=== PATIENT | male | born 1935 | race Caucasian/White ===

== ENCOUNTER 2016-10-11 01:09 | Observation (INO) | payer MEDICARE, OTHER ==
[~2016-10-11] VITALS: Ht 180.3 cm; Wt 90.8 kg
[~2016-10-11 01:09] MED LIST: METH500T PO; OXYC1TAB24 PO
[2016-10-11 01:14] VITALS: BP 125/65; PULSE 90; RESP 14; O2SAT 99
--- NOTE | 2016-10-11 01:31 | ED.REPORT ---
HPI-Chest Pain 40 and Over Date of Service Oct 11, 2016 ED Provider: Rajat Everett MD A 80 year old male on Warfarin with a history of NH with cardiac stent placement , atrial fibrillation, and a prior history of smoking is brought to the ED via EMS due to an intermittent "chest disturbance." The discomfort lasts for a moment and has occurred several times this evening. The pt denies shortness of breath or diaphoresis. The pt lives alone at home. Nursing Notes Stated Complaint: CHEST PAIN Chief Complaint: Chest Pain Nursing Notes Reviewed: Yes Allergies: Coded Allergies: No Known Allergies (Unverified , 10/11/16) Scheduled Atorvastatin (Lipitor) 10 Mg Tab 10 MG PO DAILY Cyclosporine (Restasis) 1 Each Droperette 1 EACH AFFECT_EYE BID Diltiazem ER (Diltiazem ER) 180 Mg Cap.er.24h 180 MG PO BID Furosemide (Lasix) 20 Mg Tablet 20 MG PO DAILY Gabapentin (Gabapentin) 300 Mg Capsule 300 MG PO HS Lifitegrast (Xiidra) 5 % Droperette 1 EACH BOTH_EYES BID Methocarbamol (Robaxin) 500 Mg Tablet 1,000 MG PO TID Tamsulosin (Flomax) 0.4 Mg Capsule 0.8 MG PO DAILY Triamterene/HCTZ 37.5-25 mg (Triamterene/HCTZ 37.5-25 mg) 1 Each Capsule 1 CAPSULE PO DAILY Warfarin Sodium (Coumadin) 2.5 Mg Tablet 2.5 MG PO DAILY Scheduled PRN oxyCODONE-Acetaminophen 5-325 mg (oxyCODONE-Acetaminophen 5-325 mg) 1 Each Tablet 1 TAB PO Q4H PRN PRN For Pain General Time Seen by MD: 01:30 Chief Complaint Chest pain Hx Obtained From: Patient, EMS Arrived By: Ambulance Sudden in Onset?: Yes Symptom Duration: Intermittent Recent Healthcare: No recent doctor visit, No recent hospitalization Similar Sx Previous: No Past Medical History Past Medical History NH with cardiac stent placement Kidney stones Food hoarding Low back pain for 1 yr as of 2016 Atrial fibrillation Reports: Atrial fibrillation Past Surgical History Cardiac stent placement Skin cancer removal Lithotripsy Reports: Appendectomy Smoking History Former Smoker Social History Meteorological Engineer reports that patient is a hoarder, and that his house is full of dramatic amounts of food that is extensive states of decay. He is also actively john and dehydrating foods and storing them in large quantities. Alcohol Use: Denies alcohol use Drug Use: Denies drug use Other Social History: Local resident Occupation lives by self in 2 story house Ambulatory Status Independent Review of Systems Constitutional: Denies: Fever Respiratory: Denies: Non-productive cough, Shortness of breath Cardiovascular: Reports: Chest pain ("discomfort") GI: Denies: Abdominal pain, Vomiting Musculoskeletal: Denies: Back pain Skin: Denies Diaphoresis, Denies Rash Complete sys rev & neg: except as marked. Physical Exam Initial Vital Signs Vital Signs (First) Date Time Temp Pulse Resp B/P Pulse Ox O2 Delivery O2 Flow Rate FiO2 10/11/16 01:14 36.5 90 14 125/65 99 Room Air Initial VS: Reviewed General/Constitutional: Awake, Alert Respiratory / Chest: Atraumatic, Breath sounds NL, Breath sounds = bilat, No respiratory distress Cardiovascular: Heart rate NL, Regular rhythm, Heart sounds NL Abdomen: Atraumatic, Soft, Non-tender Neck: Atraumatic, Supple, Full range of motion Back: Atraumatic, Full range of motion Lower Extremity / Pelvis / MS: Atraumatic, Full range of motion Skin: Atraumatic, Color NL, No rash, Warm, Dry Neurologic: Oriented X3, Speech NL, No motor deficits, No sensory deficits Psychiatric: Affect NL, Mood NL Head / Eyes: Atraumatic, Normocephalic, PERRL, EOMI ENT: Atraumatic, Airway patent, Mucous membranes moist Upper Extremity / MS: Atraumatic, Full range of motion Interpretation & Diagnostics Lab Results Interpretation Result Diagram: 10/11/16 0545 10/11/16 0545 Test 10/11/16 01:17 Hold Purple Top Tube Received (Received) Prothrombin Time 58.4sec (8.1-12.5) Prothromb Time International Ratio 5.28ratio Activated Partial Thromboplast Time 44.2sec (22.8-33.0) Hold Blue Top Tube Received (Received) Magnesium Level 1.8mg/dL (1.6-2.6) Pro-B-Type Natriuretic Peptide 367.7pg/mL (0-486) Hold Shawnee Top Tube Received (Received) Hold Lucas Top Tube Received (Received) ECG Interpretation ECG Interpretation: atrial fibrillation with a rate of 101 low voltage, extremity leads Time: 01:13 Interpreted by: ED physician X-Ray Chest Interpretation Chest Xray Interpretation: no acute findings Interpretation / Wet Read by: Wet read ED physician Re-Eval/Medical Decision Med Decision/Clinical Course 80-year-old with known coronary disease presents with an atypical brief fleeting chest pain repetitively over the course seeming. Initial cardiac enzymes and EKG are unrevealing. However, he is not a low risk patient with known disease. He also lives alone and is mildly demented. He is admitted now for completion of rule out protocol and further evaluation to assess stability. Additional issues include elevation of his creatinine now to 1.29, which is changed from the one prior value we have. BUN is also twenty-seven and he appears to be mildly dehydrated. Additional to that is the fact that he is on Coumadin chronically for atrial fibrillation, and is over anticoagulated at this point, without active bleeding. Coumadin will need to be held in dosage modified. Source of Hx: Old records Time of Eval: 03:15 Patient Status: Condition improved Re-Evaluation/Progress Note: Pt rechecked, who is resting comfortably. He is informed of his diagnosis and the need for admission. The pt understands and agrees with the plan. All questions are addressed at this time. Consultation : Referral / Consult Name: Patsy Casper DO Consulted With: Hospitalist Call Returned at: 03:11 [employer] Contact Printer: Agrees with eval, Agrees with plan, Accepts admit Note: Spoke with Dr. Casper, hospitalist, regarding pt's case. Dr. Casper agrees with the evaluation and agrees to admit the pt. Counseled Regarding: Diagnosis, Lab results, Need for admission Discharge & Departure Primary Impression: Chest pain Additional Impressions: Acute kidney injury Overdose of coumadin Disposition: ADMITTED TO HOSPITAL Discharge Condition All VS Reviewed: Yes Condition: Stable Referrals: Carson Ruff (PCP) Karl Attestation Portions of this note were transcribed by Norberto Eagle. I, Dr. Everett personally performed the history, physical exam and medical decision-making; I reviewed and confirmed the accuracy of the information in the transcribed note. Signed by: Karl Fernandes, 10/11/2016 and 0336. copies to: Carson Ruff Christopher W MD Oct 11, 2016 01:31 NORBERTO EAGLE Oct 11, 2016 01:41 Troponin T 0.010ug/L (0.0-0.011) Pro-B-Type Natriuretic Peptide 367.7pg/mL (0-486) Total Protein 6.6g/dL (6.4-8.4) Albumin 3.9g/dL (3.4-5.0) Hold Shawnee Top Tube Received (Received) Hold Lucas Top Tube Received (Received) ECG Interpretation ECG Interpretation: atrial fibrillation with a rate of 101 low voltage, extremity leads Time: 01:13 Interpreted by: ED physician X-Ray Chest Interpretation Chest Xray Interpretation: no acute findings Interpretation / Wet Read by: Wet read ED physician Re-Eval/Medical Decision Source of Hx: Old records Time of Eval: 03:15 Patient Status: Condition improved Re-Evaluation/Progress Note: Pt rechecked, who is resting comfortably. He is informed of his diagnosis and the need for admission. The pt understands and agrees with the plan. All questions are addressed at this time. Consultation : Referral / Consult Name: Patsy Casper DO Consulted With: Hospitalist Call Returned at: 03:11 [employer] Contact Printer: Agrees with eval, Agrees with plan, Accepts admit Note: Spoke with Dr. Casper, hospitalist, regarding pt's case. Dr. Casper agrees with the evaluation and agrees to admit the pt. Counseled Regarding: Diagnosis, Lab results, Need for admission Discharge & Departure Primary Impression: Chest pain Additional Impressions: Acute kidney injury Overdose of coumadin Disposition: ADMITTED TO HOSPITAL Discharge Condition All VS Reviewed: Yes Condition: Stable Referrals: Carson Ruff (PCP) Karl Attestation Portions of this note were transcribed by Norberto Eagle. I, Dr. Everett personally performed the history, physical exam and medical decision-making; I reviewed and confirmed the accuracy of the information in the transcribed note. Signed by: Karl Fernandes, 10/11/2016 and 0336. copies to: Carson Ruff Christopher W MD Oct 11, 2016 01:31 NORBERTO EAGLE Oct 11, 2016 01:41
[2016-10-11] MEDS ORDERED: Pantoprazole 4 mg/mL 10 mL Inj IVPUSH ONE (01:50)
[2016-10-11] MEDS ORDERED: Ketorolac 15 mg/mL Inj IVPUSH ONE (01:50)
[2016-10-11 01:56] LABS: BASOPHILS % (AUTO) 0.4 % (0-3); EOSINOPHILS % (AUTO) 0.8 % (0-5); MONOCYTES % (AUTO) 11.1 % (4-12); Mean Corpuscular Hemoglobin 31.7 pg (27.0-35.0); Mean Corpuscular Volume 92.9 fL (81-100); NEUTROPHILS % (AUTO) 61.8 % (40-74); Platelet Count 282 bil/L (150-400)
[2016-10-11 02:18] LABS: INR 5.28 ratio
[2016-10-11 02:24] LABS: Magnesium 1.8 mg/dL (1.6-2.6)
[2016-10-11 02:25] LABS: TROPONIN T 0.01 ug/L (0.0-0.011)
[2016-10-11] MEDS ORDERED: 0.9% Sodium Chloride 1,000 ML IV ONE (02:55)
[2016-10-11] MEDS ORDERED: 0.9% Sodium Chloride 1,000 ML IV SCH (03:38)
[2016-10-11] MEDS ORDERED: Polyethylene Glycol (PEG) 17 Gm Powder PO PRN (03:40)
[2016-10-11] MEDS: Sodium Chloride LOK Flush 10 mL Syringe IVFLUSH SCH ×2 (03:40→10:43)
[2016-10-11] MEDS ORDERED: Alum-Mag Hydrox-Simeth 30 mL Suspension PO PRN (03:40)
[2016-10-11] MEDS ORDERED: Ondansetron 2 mg/mL 2 mL Inj IVPUSH PRN (03:40)
--- NOTE | 2016-10-11 04:20 | PCM.HPMED ---
Subjective Date of Service Oct 11, 2016 Primary Provider: Admitting Physician: Patsy Casper DO Primary Care Physician: Gopal Galeano DO Attending Physician: aPtsy Casper DO Admit Status: From the Emergency Department Chief Complaint: Chest discomfort History of Present Illness: Patient is a pleasant 80-year-old gentleman who lives by himself, presented to the emergency department after having "discomfort" to his left chest. He has a significant history of myocardial infarction status post stent placement. He refuses to call the sensation of pain, says that with his previous myocardial infarction he did not have any symptoms at all, which prompted him to call [phone]. He is on Coumadin for atrial fibrillation, diltiazem for rate control. He denies any lightheadedness, dizziness, shortness of breath, nausea vomiting diarrhea, weakness, rashes, pain anywhere else on his body, no sensation of heartburn, no changes in vision, no headaches. In the emergency department his vital signs: 36.5C, heart rate 90, respirations 14, 125/65, 99% on room air CBC is completely unremarkable, with normal differential. CMP mildly elevated creatinine at 1.29. BUN 27. BNP is 367, magnesium 1.8. Electrolytes were normal. INR 5.28 Chest x-ray performed in the emergency department showed no acute findings, as read by the emergency room physician. EKG showed atrial fibrillation with a rate of 101, developing left axis deviation, no signs of acute ischemia or infarct. QTC 455 Patient states he does not eat as much as he used to, but does eat at least one meal a day. Tonight he claims he did not have anything to drink with dinner because he went to [employer] and to charge him for water. He does not have any family in the area, nor does he have a coil connector to check in on him. Previous social history states that he is a hoarder and has multiple bottles of food in varying states of decay throughout his home. He states he occasionally misses doses of his Coumadin, but denies taking extra doses to "catch up." Review of outpatient records shows his INR on 09/19/2016 was 2.4. He denies any bruising, black stools, hematemesis, hematochezia. Allergies Coded Allergies: No Known Allergies (Unverified , 10/11/16) Home Medications Warfarin: 2.5 mg every day by mouth Atorvastatin 10 mg everyday by mouth Diltiazem XL 180 mg capsule 1 pill by mouth twice a day Furosemide 20 mg by oral route every day Gabapentin 300 mg by 2 pills by mouth every day at bedtime Triamterene 37.5 mg-hydrochlorothiazide 25 mg 1 capsule everyday by mouth Tamsulosin 0.4 mg 2 capsules every day, half hour following the same meal each day. xiidra 5% eyedrops 1 drop of ophthalmic route 2 times every day and both eyes approximately 12 hours apart. Restasis 0.05% eyedrops, 1 drop 5, crit every 12 hours to affected eyes PMH Myocardial infarction status post stent placement 11/19/2015 Mild dementia Hypertension Hyperlipidemia Cataract Skin cancer DPH Aortic stenosis Atrial fibrillation Surgical History Cardiac stent placement Skin cancer removal Lithotripsy Reports: Appendectomy Family History Mother lived to be 106 years old Father is Brother is alive and well Sisters alive and well Maternal grandmother passed from stomach cancer. Social History Occupation: retired Hx Alcohol Use: Yes (Wine occassionally. ) Hx Substance Use: No Hx Tobacco Use: Yes Smoking Status: Former Smoker Living Arrangement: Alone Exam Vital Signs Vital Sign - Last Date Time Temp Pulse Resp B/P Pulse Ox O2 Delivery O2 Flow Rate FiO2 10/11/16 01:14 36.5 90 14 125/65 99 Room Air Intake and Output 10/10/16 10/10/16 10/11/16 Cumulative From/Thru 15:00 23:00 07:00 10/11/16 01:14 - 10/11/16 03:34 Intake Total 1000 ml 1000 ml Balance 1000 ml 1000 ml Intake IV Total 1000 ml 1000 ml Exam General: Laying in bed, no apparent distress. HEENT: Normocephalic, atraumatic, EOMI grossly, mucous membranes moist, conjunctiva pink, neck is supple. Cardiovascular: Irregularly irregular, no clicks murmurs rubs, peripheral pulses 2/4 equal bilaterally Pulmonary: Clear to auscultation bilaterally, no W/R/R. good resp effort Abdominal: Soft to palpation, non-tender bowel sounds present 4, no hepatosplenomegaly. Negative rebound. : flores absent Extremities: No edema appreciated. No tenderness, asymmetry. Neuro: Neurologically grossly intact, strength is equal bilaterally upper and lower extremities. MSK: able to move extremities on their own volition, strength 5 out of 5 equal bilaterally to upper and lower extremities. Lymph: no cervical or supraclavicular lymphadenopathy Psych: Oriented to person, place, time, situation. Answers questions appropriately, asks appropriate questions and return. Lab and Diagnostics Result Diagram: 10/11/1611610/11/16116 X-Rays, CTs and MRIs Official radiology read is not yet available. Wet read by ER physician states no acute findings 12-lead ECG Please see history of present illness Assessment & Plan 80-year-old gentleman with chronic atrial fibrillation, on warfarin, rate controlled, presenting with chest discomfort, found to have supratherapeutic INR , and evidence of acute kidney injury. #1 acute kidney injury, present on admission, treatment and evaluation ongoing Serum creatinine was 1.29, BUN 27, ratio of 20 suggest prerenal cause, in the context of him not having anything to drink this afternoon or evening makes dehydration likely cause. Received 1 L normal saline IV in the emergency department Encourage oral intake throughout the morning, recheck BNP in the morning. #2 acute chest discomfort, present on admission, improving. Evaluation for NSTEMI ongoing. Patient does not describe it as a pain, he did not have pain with his previous myocardial infarction, he simply stating that he is feeling a sensation on his left precordium and was concerned for it being his heart. Given the history of myocardial infarction, status post stent placement, atrial fibrillation concern for NSTEMI. EKG did not show evidence of acute infarct or ischemia. Trend troponin. #3 supratherapeutic INR, chronicity unknown, evaluation and treatment initiated. INR was found to be 5.28, roughly 1 month ago was therapeutic at 2.4. There is no change in his medication at the time, most likely due to decreased vitamin K oral intake or other change in nutritional status. Hold warfarin Monitor for bleeding in the hospital, and infuse vitamin K if necessary, recheck CBC to evaluate status of hemoglobin. Do not suspect active bleed at this time. #4 social concerns, resident on admission, evaluation ongoing There is concern for self neglect, requesting masters of social work evaluate patient's situation and ability to care for himself. Outpatient records states that he has mild dementia. He has no caretakers and no one to check in on him. Review of outpatient records shows that he has lost 15 pounds in the last 3 months. atrial fibrillation, chronic -cont diltiazem when med rec completed -hold warfarin as above HTN, chronic HLD, chronic cont statin, lipid panel pend #MEDICATION RECONCILIATION TO BE PERFORMED. Chronic controlled conditions Hypertension, nocturia, xerostomia -Continue outpatient medication Pain Evaluation: Adequate Pain Control GI Prophylaxis: Not indicated VTE Prophylaxis: Other (supratherapeutic INR on warfarin) Resuscitation Status: CPR: Attempt Resuscitation Attending Statement The patient was seen and examined together with house staff on 10/11/2016 and I agree with the history, exam and plan as outlined in the note above. Zachary Metzger DO Oct 11, 2016 04:20 Patsy Casper DO Oct 11, 2016 05:42
[2016-10-11 04:48] VITALS: BP 122/84; PULSE 90; RESP 18; O2SAT 98
[2016-10-11 06:00] VITALS: PULSE 85
[2016-10-11 06:06] LABS: APPEARANCE,URINE HAZY (CLEAR,HAZY); COLOR,URINE YELLOW (YELLOW); PH,URINE 5.5 (5.0-8.0)
[2016-10-11 06:07] LABS: OCCULT BLOOD,URINE LARGE (NEGATIVE); UROBILINOGEN,URINE NORMAL (NORMAL)
[2016-10-11] MEDS ORDERED: TAMS0.4C98 PO (06:14)
[2016-10-11] MEDS ORDERED: CYCL1DRO AFFECT_EYE (06:14)
[2016-10-11] MEDS ORDERED: TRIA1CAP5 PO (06:14)
[2016-10-11] MEDS ORDERED: WARF2.5T PO (06:14)
[2016-10-11] MEDS ORDERED: FURO-129 PO (06:14)
[2016-10-11] MEDS ORDERED: ATRV10T PO (06:14)
[2016-10-11] MEDS ORDERED: GABA-502 PO (06:14)
[2016-10-11] MEDS ORDERED: DILT180C83 PO (06:14)
[2016-10-11] MEDS ORDERED: LIFI1DRO BOTH_EYES (06:14)
[2016-10-11 06:24] LABS: BASOPHILS % (AUTO) 0.3 % (0-3); EOSINOPHILS % (AUTO) 0.7 % (0-5); MONOCYTES % (AUTO) 8.5 % (4-12); Mean Corpuscular Hemoglobin 31.7 pg (27.0-35.0); Mean Corpuscular Volume 92.4 fL (81-100); NEUTROPHILS % (AUTO) 62.5 % (40-74); Platelet Count 263 bil/L (150-400)
--- NOTE | 2016-10-11 06:29 | NUR ---
Admit Admitted to room 3006 from ED via stretcher. Able to transfer self into bed. LAC IV SL. Tele Afib HR 90's. Denies CP or discomfort but states he has experience "chest disturbances" throughout the day leading up to his admit. RA w/o c/o SOB. Reports baseline rare dry cough. Tolerating liquid intake without any noted issues. Able to void per urinal and denies GI/ issues or complaints. Baseline poor activity tolerance with increased leg pain with ambulation per patient. Alert with mild forgetfulness but able to orient to room with good recall noted. Personal belongings at bedside per patient request. Oriented to call light use with return demonstration. Educated on risk of injury from falls and encouraged to use call light and wait for assistance before exiting bed with verbal understanding.
[2016-10-11 06:53] LABS: TROPONIN T 0.01 ug/L (0.0-0.011)
--- NOTE | 2016-10-11 09:03 | DRSVH ---
PROCEDURE: X-RAY CHEST ONE VIEW, PORTABLE ([id number]) INDICATIONS: Chest pain TECHNIQUE: One view of the chest was acquired. COMPARISON: None. FINDINGS: Surgical changes and devices: None. Lungs and pleura: No pleural effusions or pneumothorax. Lungs are clear. Mediastinum: Mediastinal contours appear normal. Heart size is normal. Bones and chest wall: No suspicious bony lesions. Overlying soft tissues appear unremarkable. IMPRESSION: No acute cardiopulmonary disease process. Dictated by: Mary Ann Cheung MD, PhD on 10/11/2016 at 9:01 Approved by: Mary Ann Cheung MD, PhD on 10/11/2016 at 9:02
[2016-10-11 10:00] VITALS: BP 117/77; PULSE 81; RESP 18; O2SAT 94
[2016-10-11 10:24] VITALS: PULSE 70
[2016-10-11] MEDS ORDERED: WARF2.5T82 PO (10:49)
--- NOTE | 2016-10-11 11:43 | NUR ---
LUIS ANGEL explained and signed. Copy of LUIS ANGEL and Medicare self administered medication information provided.
[2016-10-11 13:35] VITALS: BP 118/75; PULSE 90; RESP 18; O2SAT 94
--- NOTE | 2016-10-11 15:04 | PCM.DIMED ---
Solo Rivera DO 10/11/16 1504: Discharge Instructions Date of Service Oct 11, 2016 Dates of Hospitalization Oct 11, 2016 at 03:46 Discharge Diagnosis Discharge Diagnosis acute kidney injury - resolved acute chest discomfort - resolved supratherapeutic INR atrial fibrillation, chronic HTN, chronic HLD, chronic Medication Instructions Please resume your medications as instructed. Please stop taking your Warfarin until you follow up with your doctor or until you are seen at the Coumadin clinic. Diet Heart Healthy Activity No restrictions Call your provider Fever or Chills, Shortness of breath, Bleeding, Chest pain, Weakness (unilateral ) Patient Instructions Please follow up with your doctor within 3-4 days. Please follow up with the Coumadin Clinic within 3-4 days. Please get a BMP and PT/INR blood draw in 3 days. Send these results to your PCP immediately. Follow-up Provider: Gopal Galeano DO Follow-up with PCP in: 1 week Tho Galvan DO 10/12/16 1117: Discharge Instructions Attending's Statement Read and agree Solo Rivera DO Oct 11, 2016 15:04 Tho Galvan DO Oct 12, 2016 11:17
--- NOTE | 2016-10-11 15:13 | NUR ---
Social Work: Initial Assessment / D/C Data: Pt is a 80 y/o male admitted for chest pain, MARIA A over anticoagulant. Pt's PCP is Dr Galeano, pt's insurance is Medicare with [employer]. EMR reviewed. Readmit score not listed. THERAPY TEACHER met with pt at bedside, role explained. Pt states that he lives alone in a two story home in [place] where he uses a cane and walker at times. Pt states that her drives, has no hx of HH or SNF, no LTC or VA benefits, and is not a caregiver. Pt denies having DPOA/AD, and declined info. Pt states he does not have a ride to go home and agreed to pay privately for a taxi to go home. No further d/c planning needs. THERAPY TEACHER will continue to follow if needs arise. Assessment: Pt who is independent at baseline. Plan: Pt will d/c home via taxi private pay today. No further d/c planning needs. THERAPY TEACHER will continue to follow if needs arise. PUMA Grant Addendum: 10/11/16 at 1517 by LARISA WILSON Amended: Links added.
--- NOTE | 2016-10-11 15:30 | PCM.DC.MED ---
Discharge Summary Date of Service Oct 11, 2016 Dates of Hospitalization Date of Hospital Admission Oct 11, 2016 at 03:46 Date of Discharge: Oct 11, 2016 Providers: Admitting Physician: Patsy Casper DO Primary Care Physician: Gopal Galeano DO Attending Physician: Patsy Casper DO Diagnosis at Time of Discharge Diagnosis at Time of Discharge acute kidney injury - resolved acute chest discomfort - resolved supratherapeutic INR atrial fibrillation, chronic HTN, chronic HLD, chronic Procedures XRay, CTs & MRIs cxr portable IMPRESSION: No acute cardiopulmonary disease process. ECG 12 Lead Please see history of present illness Brief History Patient is a pleasant 80-year-old gentleman who lives by himself, presented to the emergency department after having "discomfort" to his left chest. He has a significant history of myocardial infarction status post stent placement. He refuses to call the sensation of pain, says that with his previous myocardial infarction he did not have any symptoms at all, which prompted him to call 911 tonight. He is on Coumadin for atrial fibrillation, diltiazem for rate control. He denies any lightheadedness, dizziness, shortness of breath, nausea vomiting diarrhea, weakness, rashes, pain anywhere else on his body, no sensation of heartburn, no changes in vision, no headaches. In the emergency department his vital signs: 36.5C, heart rate 90, respirations 14, 125/65, 99% on room air CBC is completely unremarkable, with normal differential. CMP mildly elevated creatinine at 1.29. BUN 27. BNP is 367, magnesium 1.8. Electrolytes were normal. INR 5.28 Chest x-ray performed in the emergency department showed no acute findings, as read by the emergency room physician. EKG showed atrial fibrillation with a rate of 101, developing left axis deviation, no signs of acute ischemia or infarct. QTC 455 Patient states he does not eat as much as he used to, but does eat at least one meal a day. Tonight he claims he did not have anything to drink with dinner because he went to [employer] and to charge him for water. He does not have any family in the area, nor does he have a booker to check in on him. Previous social history states that he is a hoarder and has multiple bottles of food in varying states of decay throughout his home. He states he occasionally misses doses of his Coumadin, but denies taking extra doses to "catch up." Review of outpatient records shows his INR on 09/19/2016 was 2.4. He denies any bruising, black stools, hematemesis, hematochezia. Hospital Course 80-year-old gentleman with chronic atrial fibrillation, on warfarin, rate controlled, presenting with chest discomfort, found to have supratherapeutic INR , and evidence of acute kidney injury. #1 acute kidney injury, present on admission, Resolved Serum creatinine was 1.29, BUN 27, ratio of 20 suggest prerenal cause, in the context of him not having anything to drink this afternoon or evening makes dehydration likely cause. Received 1 L normal saline IV in the emergency department Encourage oral intake throughout the morning, recheck BNP in the morning. #2 acute chest discomfort, present on admission, improving. Resolved Patient does not describe it as a pain, he did not have pain with his previous myocardial infarction, he simply stating that he is feeling a sensation on his left precordium and was concerned for it being his heart. Given the history of myocardial infarction, status post stent placement, atrial fibrillation concern for NSTEMI. EKG did not show evidence of acute infarct or ischemia. Trops neg x3 #3 supratherapeutic INR, chronicity unknown, stable INR was found to be 5.28, roughly 1 month ago was therapeutic at 2.4. There is no change in his medication at the time, most likely due to decreased vitamin K oral intake or other change in nutritional status. Hold warfarin Advise patient to hold warfarin over the weekend and to notify PCP and [facility] on Thursday. #4 social concerns, resident on admission, evaluation ongoing There was some concern for self neglect, requesting masters of social work evaluate patient's situation and ability to care for himself. Outpatient records states that he has mild dementia. He has no caretakers and no one to check in on him. atrial fibrillation, chronic - stable -cont diltiazem when med rec completed -hold warfarin as above HTN, chronic HLD, chronic cont statin, lipid panel pend Exam Vital Signs (Last) Date Time Temp Pulse Resp B/P Pulse Ox O2 Delivery O2 Flow Rate FiO2 10/11/16 13:35 36.8 90 18 118/75 94 Room Air Exam General: Laying in bed, no apparent distress. HEENT: Normocephalic, atraumatic, EOMI grossly, mucous membranes moist, conjunctiva pink, neck is supple. Cardiovascular: Irregularly irregular, no clicks murmurs rubs, peripheral pulses 2/4 equal bilaterally Pulmonary: Clear to auscultation bilaterally, no W/R/R. good resp effort Abdominal: Soft to palpation, non-tender bowel sounds present 4, no hepatosplenomegaly. Negative rebound. : flores absent Extremities: No edema appreciated. No tenderness, asymmetry. Neuro: Neurologically grossly intact, strength is equal bilaterally upper and lower extremities. MSK: able to move extremities on their own volition, strength 5 out of 5 equal bilaterally to upper and lower extremities. Lymph: no cervical or supraclavicular lymphadenopathy Psych: Oriented to person, place, time, situation. Answers questions appropriately, asks appropriate questions and return. Test 10/11/16 01:17 10/11/16 05:20 10/11/16 05:45 10/11/16 12:20 Hold Purple Top Tube Received (Received) Prothrombin Time 58.4sec (8.1-12.5) Prothromb Time International Ratio 5.28ratio Activated Partial Thromboplast Time 44.2sec (22.8-33.0) Hold Blue Top Tube Received (Received) Magnesium Level 1.8mg/dL (1.6-2.6) Pro-B-Type Natriuretic Peptide 367.7pg/mL (0-486) Hold [place] Top Tube Received (Received) Hold Lucas Top Tube Received (Received) Urine Color Yellow (YELLOW) Urine Appearance Hazy (CLEAR,HAZY) Urine pH 5.5 (5.0-8.0) Urine Specific Davis 1.025 (1.003-1.035) Urine Protein Negativemg/dL (NEG,TRACE) Urine Glucose (UA) Negativemg/dL (NEGATIVE) Urine Ketones Negativemg/dL (NEGATIVE) Urine Occult Blood Large (NEGATIVE) Urine Nitrite Negative (NEGATIVE) Urine Bilirubin Negative (NEGATIVE) Urine Urobilinogen Normalmg/dL (NORMAL) Urine Leukocyte Esterase Negative (NEGATIVE) Urine RBC 11-50/hpf (0-2) Urine WBC 0-5/hpf (0-5) Urine Epithelial Cells Occasional/hpf (NONE-MOD) Urine Crystals None seen (NONE SEEN) Urine Bacteria Few/hpf (NONE-FEW) Urine Hyaline Casts Occasional/lpf (NONE) Urine Granular Casts None seen (NONE SEEN) Urine Waxy Casts None seen (NONE SEEN) Urine Red Blood Cell Casts None seen (NONE SEEN) Urine White Blood Cell Casts None seen (NONE SEEN) Urine Mucus Present (None Seen) Urine Trichomonas None seen (NONE SEEN) Urine Yeast None (NONE SEEN) Urinalysis Comment None Urine Culture Reflexed Not indicated Hold Urine Received (Received) White Blood Count 8.7th/mm3 (3.8-10.1) Red Blood Count 4.61mil/mm3 (4.40-5.80) Hemoglobin 14.6g/dL (13.8-17.2) Hematocrit 42.6% (41.0-50.0) Mean Corpuscular Volume 92.4fL (81-100) Mean Corpuscular Hemoglobin 31.7pg (27.0-35.0) Mean Corpuscular Hemoglobin Concent 34.3% (32.0-37.0) Red Cell Distribution Width 13.0% (12.3-15.4) Platelet Count 263bil/L (150-400) Neutrophils (%) (Auto) 62.5% (40-74) Lymphocytes (%) (Auto) 27.7% (14-46) Monocytes (%) (Auto) 8.5% (4-12) Eosinophils (%) (Auto) 0.7% (0-5) Basophils (%) (Auto) 0.3% (0-3) Sodium Level 141mEq/L (134-144) Potassium Level 3.4mEq/L (3.5-5.2) Chloride Level 103mEq/L (97-108) Carbon Dioxide Level 21mmol/L (18-29) Blood Urea Nitrogen 26mg/dL (8-27) Creatinine 1.18mg/dL (0.76-1.27) Estimat Glomerular Filtration Rate 63mL/min (>59) Glucose Level 102mg/dL (60-99) Calcium Level 8.6mg/dL (8.5-10.1) Total Bilirubin 0.6mg/dL (0.0-1.2) Aspartate Amino Transf (AST/SGOT) 14U/L (0-50) Alanine Aminotransferase (ALT/SGPT) 9U/L (0-44) Alkaline Phosphatase 74U/L (25-160) Total Protein 5.7g/dL (6.4-8.4) Albumin 3.6g/dL (3.4-5.0) Triglycerides Level 84mg/dL (0-149) Cholesterol Level 126mg/dL (100-199) LDL Cholesterol, Calculated 48.200mg/dL (0-99) VLDL Cholesterol 16.800mg/dL HDL Cholesterol 61mg/dL (>39) Cholesterol/HDL Ratio 2.07 (0.0-4.4) Troponin T < 0.010ug/L (0.0-0.011) Discharge Medications Discharge Medications Diltiazem ER (Diltiazem ER) 180 Mg Cap.er.24h 180 MG PO BID (Reported) Furosemide (Lasix) 20 Mg Tablet 20 MG PO DAILY (Reported) Tamsulosin (Flomax) 0.4 Mg Capsule 0.8 MG PO DAILY (Reported) Triamterene/HCTZ 37.5-25 mg (Triamterene/HCTZ 37.5-25 mg) 1 Each Capsule 1 CAPSULE PO DAILY (Reported) Warfarin Sodium (Warfarin Sodium) 2.5 Mg Tablet 1.5 TAB PO DAILY (Reported) Additional med instructions Please resume your medications as instructed. Please stop taking your Warfarin until you follow up with your doctor or until you are seen at the Coumadin clinic. Followup Plan Disposition: Home Discharge Diet: Heart Healthy Discharge Activity: No restrictions Patient Instructions Please follow up with your doctor within 3-4 days. Please follow up with the Coumadin Clinic within 3-4 days. Please get a BMP and PT/INR blood draw in 3 days. Send these results to your PCP immediately. Follow-up Provider: Gopal Galeano DO Follow-up with PCP in: 1 week Time spent 35 minutes Attending Statement I have seen and evaluated patient at bedside in addition to directly supervising care provided by resident physician. I agree with above documentation. Pt quickly stabilized medically with minimal fluid resuscitation. DC'd in stable condition with plan to FU at [facility] within 1 week for FU lab testing/evaluation. copies to: Gopal Galeano DO Solo Rivera DO Oct 11, 2016 15:30 Tho Galvan DO Oct 12, 2016 13:03
--- NOTE | 2016-10-11 16:52 | NUR ---
Discharge D/C to home by cab. D/C instructions and f/u instructions discussed and printed in packet. Care notes provided. Pt comfortable with plan of care at this time. Addendum: 10/12/16 at 0659 by MARYSE JOHNSON RN Escorted to awaiting cab via [employer] and W/C with d/c packet and all belongings.
== END 2016-10-11 18:02 | disposition home or self-care (01) ==
LOC: SED 01:09 → MPC 03:46
PROVIDERS: ADMIT Internal Medicine; ATTEND Internal Medicine
DX: N17.9 Acute kidney failure, unspecified (principal); R07.89 Other chest pain; I48.2 Chronic atrial fibrillation; I10 Essential (primary) hypertension; E78.5 Hyperlipidemia, unspecified; I25.2 Old myocardial infarction; I25.10 Atherosclerotic heart disease of native coronary artery without angina pectoris; F03.90 Unspecified dementia, unspecified severity, without behavioral disturbance, psychotic disturbance, mood disturbance, and anxiety; H26.9 Unspecified cataract; I35.0 Nonrheumatic aortic (valve) stenosis; M54.5 Low back pain; F42.3 Hoarding disorder; Z87.891 Personal history of nicotine dependence; Z95.5 Presence of coronary angioplasty implant and graft; Z79.01 Long term (current) use of anticoagulants
CPT/HCPCS: 36415; 71010; 80053; 80061; 81000; 83735; 83880; 84484; 85025; 85610; 85730; 86850; 93005; 96361; 96374; 96375; 99285; G0378; J1885; J7030

== ENCOUNTER 2016-10-20 12:15 | Emergency (ER) | payer MEDICARE, OTHER ==
[~2016-10-20] VITALS: Ht 180.3 cm; Wt 90.0 kg
[~2016-10-20 12:15] MED LIST changes: +DILT180C83 PO; +FURO-129 PO; -METH500T PO; -OXYC1TAB24 PO; +TAMS0.4C98 PO; +TRIA1CAP5 PO; +WARF2.5T82 PO
--- NOTE | 2016-10-20 12:20 | ED.REPORT ---
HPI-General Illness Date of Service Oct 20, 2016 ED Provider: A 80 year old male with a history of ME with cardiac stent placement, atrial fibrillation on warfarin, prior history of smoking, and chronic back pain, who presents to the emergency department by EMS for chest pain. The patient states that it is not pain but describes the sensation as a "disturbance." The pain occurred 2 hours ago and only lasted for a second or two. The pain has not returned since. He has a chronic cough. He denies fever, chills, shortness of breath, diaphoresis, abdominal pain, nausea, vomiting or diarrhea. He was recently hospitalized for 1 day for similar symptoms. Nursing Notes Stated Complaint: CHEST DISCOMFORT Chief Complaint: Chest Pain Nursing Notes Reviewed: Yes Allergies: Coded Allergies: No Known Allergies (Unverified , 10/20/16) Scheduled Diltiazem ER (Diltiazem ER) 180 Mg Cap.er.24h 180 MG PO BID Furosemide (Lasix) 20 Mg Tablet 20 MG PO DAILY Tamsulosin (Flomax) 0.4 Mg Capsule 0.8 MG PO DAILY Triamterene/HCTZ 37.5-25 mg (Triamterene/HCTZ 37.5-25 mg) 1 Each Capsule 1 CAPSULE PO DAILY Warfarin Sodium (Warfarin Sodium) 2.5 Mg Tablet 1.5 TAB PO DAILY General Time Seen by MD: 12:19 Chief Complaint Chest pain ("disturbance") Hx Obtained From: Patient, EMS Arrived By: Ambulance Sudden in Onset?: Yes Onset Occurred: 1 - 4 hours ago Symptom Duration: 1 - 15 minutes (1-2 seconds) Location: : Chest Quality: Painful (disturbance) Severity: Current: No pain currently Severity: Maximum: Pain level 1 out of 10 Recent Healthcare: Recent doctor visit, Recent hospitalization Similar Sx Previous: Yes Past Medical History Past Medical History ME with cardiac stent placement Kidney stones Food hoarding Low back pain for 1 yr as of 2016 Atrial fibrillation on warfarin Past Surgical History Cardiac stent placement Skin cancer removal Lithotripsy Reports: Appendectomy Smoking History Former Smoker Social History 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 He is also actively john and dehydrating foods and storing them in large quantities. Alcohol Use: Denies alcohol use Drug Use: Denies drug use Other Social History: Local resident Occupation lives by self in 2 story house Ambulatory Status Independent Review of Systems Full Review of Systems Constitutional: Denies: Chills, Fever Respiratory: Reports: Non-productive cough (chronic), Denies: Shortness of breath Cardiovascular: Reports: Chest pain ("disturbance") GI: Denies: Abdominal pain, Diarrhea, Nausea, Vomiting Skin: Denies Diaphoresis Complete sys rev & neg: except as marked. Physical Exam Vital Signs Vital Signs Date Time Temp Pulse Resp B/P Pulse Ox O2 Delivery O2 Flow Rate FiO2 10/20/16 12:22 36.4 83 16 108/69 99 Room Air Initial VS: Reviewed Head / Eyes: Atraumatic, Normocephalic, PERRL ENT: Mucous membranes moist, Conjunctiva normal, No scleral icterus Respiratory: Breath sounds normal, Clear to auscultation, No respiratory distress Cardiovascular: Regular rate & rhythm, Heart sounds normal, Intact distal pulses Abdomen / GI: Soft, Non-tender, No guarding, No rebound, No distention Lymphatic: No lymphadenopathy Extremities: Vascular intact, Neuro intact, No swelling, No tenderness Skin: Warm, Dry, No cyanosis Neurologic: Alert, Oriented, Nonfocal Psychiatric: Mood/affect normal, Behavior normal, Normal thought content General/Constitutional: Awake, Alert, Cooperative Neck: Atraumatic, Supple, Full range of motion, No midline vertebral tend, No JVD Upper Extremities Upper Extremity / MS: Neurologic intact, Vascular intact Scattered bruises to his upper extremities bilaterally Interpretation & Diagnostics Lab Results Interpretation Result Diagram: 10/20/16 1325 10/20/16 1325 Test 10/20/16 13:25 White Blood Count 9.2th/mm3 (3.8-10.1) Red Blood Count 5.15mil/mm3 (4.40-5.80) Hemoglobin 16.5g/dL (13.8-17.2) Hematocrit 47.5% (41.0-50.0) Mean Corpuscular Volume 92.2fL (81-100) Mean Corpuscular Hemoglobin 32.0pg (27.0-35.0) Mean Corpuscular Hemoglobin Concent 34.7% (32.0-37.0) Red Cell Distribution Width 13.1% (12.3-15.4) Platelet Count 253bil/L (150-400) Neutrophils (%) (Auto) 72.5% (40-74) Lymphocytes (%) (Auto) 18.2% (14-46) Monocytes (%) (Auto) 8.3% (4-12) Eosinophils (%) (Auto) 0.2% (0-5) Basophils (%) (Auto) 0.5% (0-3) Prothrombin Time 14.7sec (8.1-12.5) Prothromb Time International Ratio 1.37ratio Sodium Level 136mEq/L (134-144) Potassium Level 3.3mEq/L (3.5-5.2) Chloride Level 95mEq/L (97-108) Carbon Dioxide Level 22mmol/L (18-29) Blood Urea Nitrogen 20mg/dL (8-27) Creatinine 1.25mg/dL (0.76-1.27) Estimat Glomerular Filtration Rate 59mL/min (>59) Glucose Level 141mg/dL (60-99) Calcium Level 10.0mg/dL (8.5-10.1) Magnesium Level 1.8mg/dL (1.6-2.6) Total Bilirubin 0.8mg/dL (0.0-1.2) Aspartate Amino Transf (AST/SGOT) 19U/L (0-50) Alanine Aminotransferase (ALT/SGPT) 11U/L (0-44) Alkaline Phosphatase 85U/L (25-160) Troponin T < 0.010ug/L (0.0-0.011) Total Protein 7.2g/dL (6.4-8.4) Albumin 3.9g/dL (3.4-5.0) Hold Lucas Top Tube Received (Received) ECG Interpretation ECG Interpretation: Atrial fibrillation with a rate of 69 bpm Old anteroseptal infarct No acute ST changes No change from 10/11/2016 Time: 12:33 Interpreted by: ED physician X-Ray Chest Interpretation Chest Xray Interpretation: IMPRESSION: 1. No acute cardiopulmonary disease. Dictated by: Toño Wright M.D. on 10/20/2016 at 13:11 Interpretation / Wet Read by: Interpret - Radiologist Re-Eval/Medical Decision Med Decision/Clinical Course Patient called 911 for a rather transient episode of abnormal sensation in the chest which she denies as being pain. It does not fit any classic picture for any known life-threatening pathology. Basic labs are normal and his potassium is mildly low and he will be dosed for that. Additionally his INR is subtherapeutic. Without ongoing symptoms or vital sign abnormalities it seems unlikely that this is acute coronary syndrome or pulmonary embolism or aortic dissection or any other life-threatening pathology. Strict return and follow-up precautions are given. Source of Hx: Old records, EMS Time of Eval: 12:40 Re-Evaluation/Progress Note: The patient continues to be pain free. He states, "It would be nice to have a neck massage." Time of Eval: 13:13 Re-Evaluation/Progress Note: The patient still denies any pain. Time of Eval: 14:05 Re-Evaluation/Progress Note: Rechecked the patient. Discussed results, diagnosis, and plan for discharge. All questions were addressed. Counseled Regarding: Diagnosis, Lab results, Need for follow-up, When/why to return to ED Discharge & Departure Primary Impression: Chest discomfort Additional Impressions: Hypokalemia Subtherapeutic international normalized ratio (INR) Disposition: Home Discharge Condition All VS Reviewed: Yes Condition: Stable Additional Instructions: Thank you for entrusting us with your care today. Your labs, chest x-ray, and EKG today are reassuring. Take 1.5 times your usual dose of Coumadin tonight. Your potassium was slightly low and you were given a dose in the emergency department today. Please see your physician tomorrow as previously scheduled. Seek care for concerning chest pain, shortness of breath or any other new or concerning symptoms. Referrals: Gopal Galeano DO (PCP) Scribe Attestation Portions of this note were transcribed by Karol Teixeira. I, Dr. Cade personally performed the history, physical exam and medical decision-making; I reviewed and confirmed the accuracy of the information in the transcribed note. Signed by: Karl Jules, 10/20/2016 at 1415. copies to: Gopal Galeano Timothy S DO Oct 20, 2016 12:20 Karol Teixeira Oct 20, 2016 12:29
[2016-10-20 12:22] VITALS: BP 108/69; PULSE 83; RESP 16; O2SAT 99
--- NOTE | 2016-10-20 13:13 | DRSVH ---
PROCEDURE: X-RAY CHEST ONE VIEW, PORTABLE ([id number]) INDICATIONS: pain TECHNIQUE: One view of the chest was acquired. COMPARISON: [facility], CR, XR CHEST 1VW (PORTABLE), 10/11/2016, 1:51. FINDINGS: Surgical changes and devices: None. Lungs and pleura: No pleural effusions or pneumothorax. Lungs are clear. Mediastinum: Mediastinal contours appear normal. Heart size is normal. Bones and chest wall: No suspicious bony lesions. Overlying soft tissues appear unremarkable. IMPRESSION: 1. No acute cardiopulmonary disease. Dictated by: Toño Wright M.D. on 10/20/2016 at 13:11 Approved by: Toño Wright M.D. on 10/20/2016 at 13:11
[2016-10-20 13:36] LABS: BASOPHILS % (AUTO) 0.5 % (0-3); EOSINOPHILS % (AUTO) 0.2 % (0-5); MONOCYTES % (AUTO) 8.3 % (4-12); Mean Corpuscular Volume 92.2 fL (81-100); NEUTROPHILS % (AUTO) 72.5 % (40-74); Platelet Count 253 bil/L (150-400)
[2016-10-20 13:48] LABS: INR 1.37 ratio
[2016-10-20 14:02] LABS: Magnesium 1.8 mg/dL (1.6-2.6)
[2016-10-20 14:03] LABS: TROPONIN T < 0.010 ug/L (0.0-0.011)
[2016-10-20] MEDS ORDERED: Potassium Chloride 20 mEq SR Tablet PO ONE (14:05)
[2016-10-20 14:46] VITALS: BP 126/56; PULSE 97; RESP 15
== END 2016-10-20 14:45 | disposition home or self-care (01) ==
LOC: SED 12:15
DX: R07.9 Chest pain, unspecified (principal); E87.6 Hypokalemia; R79.1 Abnormal coagulation profile; I25.2 Old myocardial infarction; I48.91 Unspecified atrial fibrillation; I10 Essential (primary) hypertension; Z87.442 Personal history of urinary calculi; Z95.5 Presence of coronary angioplasty implant and graft; Z79.01 Long term (current) use of anticoagulants; Z87.891 Personal history of nicotine dependence